=== PATIENT | female | born 1990 | race Caucasian/White ===

== ENCOUNTER 2018-10-14 10:23 | Emergency (ER) | payer OTHER ==
[~2018-10-14] VITALS: Ht 160 cm; Wt 78.0 kg
[~2018-10-14 10:23] MED LIST: KETO10TA2 PO; ORPH100T PO
== END 2018-10-14 14:16 | disposition home or self-care (01) ==
LOC: ER 10:23
DX: M94.0 Chondrocostal junction syndrome [Tietze] (principal)

== ENCOUNTER 2019-07-04 10:46 | Emergency (ER) | payer OTHER ==
[~2019-07-04] VITALS: Ht 157.5 cm; Wt 78.0 kg
[2019-07-04] MEDS ORDERED: PROAIR HFA8.5 GM IH (11:20)
== END 2019-07-04 16:29 | disposition home or self-care (01) ==
LOC: ER 10:46
DX: J45.998 Other asthma (principal); B96.0 Mycoplasma pneumoniae [M. pneumoniae] as the cause of diseases classified elsewhere

== ENCOUNTER → 2020-08-25 15:26 | Outpatient (CLI) | payer OTHER ==
[~2020-08-25 15:26] MED LIST changes: +PROAIR HFA8.5 GM IH
== END | disposition home or self-care (01) ==
LOC: PPH VACUNA 15:26
DX: Z23 Encounter for immunization (principal)

== ENCOUNTER 2021-02-02 10:26 | Emergency (ER) | payer OTHER ==
[~2021-02-02] VITALS: Ht 157.5 cm; Wt 81.2 kg
[2021-02-02] MEDS ORDERED: ZYRTEC10 M3 PO (10:43)
[2021-02-02] MEDS ORDERED: TENCON 50-3251 EACH PO (15:53)
== END 2021-02-02 16:28 | disposition home or self-care (01) ==
LOC: ER 10:26
DX: G44.201 Tension-type headache, unspecified, intractable (principal); M54.2 Cervicalgia; M62.838 Other muscle spasm; R42 Dizziness and giddiness

== ENCOUNTER 2022-05-24 09:28 | Emergency (ER) | payer OTHER ==
[~2022-05-24] VITALS: Ht 157.5 cm; Wt 82.6 kg
[~2022-05-24 09:28] MED LIST changes: +TENCON 50-3251 EACH PO; +ZYRTEC10 M3 PO
[2022-05-24] MEDS ORDERED: MONTELUKAST SODI4 M1 PO (10:03)
== END 2022-05-24 13:37 | disposition home or self-care (01) ==
LOC: ER 09:28
DX: M94.0 Chondrocostal junction syndrome [Tietze] (principal)

== ENCOUNTER 2022-11-13 23:33 | Emergency (ER) | payer OTHER ==
[~2022-11-13] VITALS: Ht 157.5 cm; Wt 83.0 kg
[~2022-11-13 23:33] MED LIST changes: +MONTELUKAST SODI4 M1 PO
[2022-11-14] MEDS ORDERED: DOLOGESIC-DF 51 EACH PO (05:11)
[2022-11-14] MEDS ORDERED: ANTIVERT25 M2 PO (05:11)
== END 2022-11-14 05:33 ==
LOC: ER 23:33
DX: R42 Dizziness and giddiness (principal); G44.209 Tension-type headache, unspecified, not intractable; Z91.013 Allergy to seafood

== ENCOUNTER 2024-01-03 17:04 | Emergency (ER) | payer OTHER ==
[~2024-01-03] VITALS: Ht 157.5 cm; Wt 83.9 kg
[~2024-01-03 17:04] MED LIST changes: +ALL DAY ALLERGY10 M3; +ANTIVERT25 M2 PO; +DOLOGESIC-DF 51 EACH PO; +MONTELUKAST SODI4 M1; +SYMBICORT 16010.2 GM; +XOPENEX HFA15 GM
[2024-01-03 18:41] VITALS: BP 131/84; O2SAT 94
[2024-01-03] MEDS ORDERED: 0.9 % SODIUM CHLORIDE 1,000 ML IV ONE (19:00)
[2024-01-03] MEDS ORDERED: BENZONATATE 200 MG CAPSULE PO ONE (19:00)
[2024-01-03] MEDS ORDERED: FAMOtidine 10 MG/ML (4ML VIAL) IV ONE (19:00)
[2024-01-03] MEDS ORDERED: HYDROCORTISONE SODIUM SUCC/PF 100 MG VIAL IM ONE (19:00)
[2024-01-03] MEDS ORDERED: IPRATROPIUM BROMIDE 0.5 MG/2.5 ML AMPUL.NEB IH ONE ×2 (19:00→19:52)
[2024-01-03] MEDS ORDERED: CEFTRIAXONE SODIUM 2,000 MG VIAL IV ONE (19:00)
[2024-01-03] MEDS ORDERED: LEVALBUTEROL HCL 0.63 MG/3 ML SOLUTION IH ONE ×2 (19:00→19:52)
[2024-01-03] MEDS ORDERED: CEFTRIAXONE SODIUM 2,000 MG VIAL ONE (19:24)
[2024-01-03] MEDS ORDERED: FAMOTIDINE/PF 20 MG/2 ML VIAL ONE (19:24)
[2024-01-03] MEDS ORDERED: HYDROCORTISONE SODIUM SUCC/PF 100 MG VIAL ONE (19:24)
[2024-01-03 19:56] LABS: HEMATOCRIT 38.1 % (36.0-45.00); HEMOGLOBIN 12.8 g/dL (12.0-15.00); MEAN CELL VOLUME 82.9 fL (80.00-100.00); MEAN CORPUSCULAR HEMOGLOBIN 27.9 pg (27.00-32.0); MEAN CORPUSCULAR HGB CONC 33.6 g/dl (32.0-36.0); PLATELET COUNT 342 K/uL (150-450); RED BLOOD COUNT 4.59 M/uL (4.00-6.00); RED CELL DISTRIBUTION WIDTH 13.9 % (11.5-14.5)
[2024-01-03 20:01] LABS: ABG PH 7.426 (7.35-7.45); ABG PO2 87.8 mmHg (80-100); ABG pCO2 35.2 mmHg (35-45); BASE EXCESS -1.1 mmol/l; BICARBONATE 22.6 mmol/l (23-25); SaO2 96.9 %; Tco2 23.7 mmol/l
[2024-01-03 20:20] LABS: allen test SATISFACTORY; o2 21 %; puncture site RADIAL LEFT
[2024-01-03 20:24] LABS: ALBUMIN 3.9 gm/dL (3.4-5.0); BILIRUBIN TOTAL 0.24 mg/dL (0.3-1.2); CALCIUM 8.9 mg/dL (8.5-10.1); CREATININE SERUM 0.86 mg/dL (0.55-1.02); GFR 76.96; GLOBULINA 4.3 G/DL (2.4-3.5); POTASSIUM 3.53 mEq/L (3.5-5.1); TOTAL PROTEIN 8.2 gm/dL (6.4-8.2)
[2024-01-03] MEDS ORDERED: OSEL75CA PO (20:26)
[2024-01-03] MEDS ORDERED: LEVALBUTER0.63 MG/3 IH (20:26)
== END 2024-01-03 20:58 | disposition home or self-care (01) ==
LOC: ER 17:05
PROVIDERS: General Practice
DX: J45.901 Unspecified asthma with (acute) exacerbation (principal); J10.1 Influenza due to other identified influenza virus with other respiratory manifestations; Z20.822 Contact with and (suspected) exposure to COVID-19; Z91.013 Allergy to seafood